=== PATIENT | male | born 1955 | race Caucasian/White ===

== ENCOUNTER 2022-11-09 13:35 | Observation (INO) ==
[2022-11-09] MEDS ORDERED: SODIUM CHLORIDE 0.9% 500 ML IV STA (13:51)
[2022-11-09] MEDS ORDERED: dilTIAZem HCl 5 MG/ML 5 ML VIAL IV ONE (13:59)
[2022-11-09] MEDS ORDERED: dilTIAZem HCl 5 MG/ML 5 ML VIAL IV STA (14:02)
--- NOTE | 2022-11-09 14:02 | Emergency Department Note ---
Impression & Plan Atrial fibrillation with rapid ventricular response ADMIT ED Provider Note HPI: The patient is a 67-year-old gentleman who presents emergency department with chief complaint of palpitations. Patient states he is also had some intermittent chest pressure on the left side that radiates somewhat to his left shoulder blade. On arrival here to the ED the patient was noted to be tachycardic in the 140s, consistent on the monitor with atrial fibrillation with RVR. Patient is otherwise hemodynamically stable and saturating well on room air. ROS: - Per HPI *Outpatient medications and allergy history reviewed. *Pertinent external medical records reviewed. PE: General: Alert HEENT: Normocephalic, trachea midline Eyes: Extraocular eye movement is intact, no scleral erythema Pulmonary: Clear to auscultation bilaterally, no wheezing Cardio: Tachycardic rate with irregular rhythm GI: Abdomen is soft to palpation : No suprapubic tenderness MSK: No evidence of trauma or malformation of the extremities, no edema Skin: No evidence of rash Neuro: Alert, no focal deficits Psychiatric: Cooperative court monitor: (As interpreted by myself): - An order was placed for continuous cardiac monitoring - Patient was noted to be in atrial fibrillation with a rate of 150 EKG: (As interpreted by myself): Rate: 145 Rhythm: Atrial flutter with variable block Intervals: IL indeterminate, QRS within normal limits, QTc [address] changes: No ST elevation Time: 1346 EKG #2 Rate: 114 Rhythm: Atrial flutter Intervals: Within normal limits ST changes: No ST elevation Time: 1440 EKG #3 Rate: 56 Rhythm: Sinus rhythm Intervals: Within normal limits ST changes: No ST elevation Time: 1600 Interventions provided in ED: -IV diltiazem, IV metoprolol, IV fluid bolus Differential Diagnosis: Atrial fibrillation with RVR, atrial flutter, SVT, sinus tachycardia, acute coronary syndrome, pulmonary embolism, aortic dissection, amongst other potential pathologies. Medical Decision Making: Patient presented to the emergency department with chief complaint of palpitations and some left-sided chest discomfort. Patient states that he has had the symptoms intermittently for about the past 2 days. On arrival here to the ED the patient is in no acute distress, he is hemodynamically stable, noted to be in atrial fibrillation with RVR on the monitor in the 150s. EKG does confirm atrial fibrillation versus atrial flutter with elevated rate. Given the patient's hemodynamic stability he was given a bolus of IV diltiazem. Patient remained on court monitor, he was given IV fluids, heart rate did improve into the low 100s following IV diltiazem. Lab work obtained shows nonspecific white blood cell count at 11.3, hemoglobin is stable at 16, platelet count within normal limits, D-dimer was obtained and is negative, low suspicion for PE. Low suspicion for aortic dissection. Patient states his pain is intermittent and atypical. Low suspicion for ACS. Troponin is also noted to be negative. Chest x-ray does not show any evidence of acute disease, following IV diltiazem and subsequently IV metoprolol, repeat EKG at 1600 shows evidence of sinus rhythm. Given that this event was new onset atrial fibrillation for the patient, I did discuss the case with the on-call midlevel provider for [facility] and the patient will be admitted to the hospitalist service for further management and cardiology consultation. Patient is in agreement the above plan the patient was placed for admission in improved condition. [facility] Disposition discussion held by myself with: Patient * CRITICAL CARE TIME: ( 42 ) minutes -Stabilization of tachyarrhythmia/atrial fibrillation with RVR requiring IV rate control medications for improvement, time spent at the bedside, discussion with other healthcare providers and arrangement of admission Diagnosis: 1. Atrial fibrillation with RVR, new onset 2. Nonspecific chest discomfort, acute Disposition: Admission López Martinez DO Emergency Medicine Past Med/Surg History Medical History Diverticulosis of colon GERD (gastroesophageal reflux disease) HLD (hyperlipidemia) Tobacco use Surgical History Hx of colonoscopy Hx of hemorrhoidectomy Family History Father Cancer Sister Heart disease Social History Smoking Status: Current every day smoker Tobacco Type: Cigarettes packs per day: 1.5; Second Hand Exposure: No; Do You Dip or Chew Tobacco: No; Tobacco Cessation Education Requested by Patient: No Hx Alcohol Use: Yes Alcohol type: beer Hx Substance Use: No Preferred Language: Maltese Communication Ability: Effective Elevator Dispatcher Required: No Beliefs That Will Affect Care: None Current Living Situation: Alone Other Information That Helps Us Care for You: No Feels Safe at Home: Yes Safety Concerns: Feels Safe At This Time Assistive Devices: None Allergies Allergies Allergy/AdvReac Type Severity Reaction Status Date / Time No Known Allergies Allergy Mild Verified 11/09/22 14:49 Home Meds Home Medications Medication Instructions Recorded Confirmed metoprolol succinate 25 mg 25 mg PO QAM 11/09/22 11/09/22 tablet,extended release 24 hr multivitamin 1 tab PO QAM 11/09/22 11/09/22 omega-3 fatty acids 1,000 mg 2,000 mg PO QAM 11/09/22 11/09/22 capsule Results & Data (ED) Vital Signs Vital Signs - 24 hr 11/09/22 13:38 11/09/22 13:53 11/09/22 13:51 Temperature 36.8 C Temperature Source Temporal Artery Scan Pulse Rate 79 133 H Pulse Rate from SpO2 Sensor Respiratory Rate 18 Respiratory Effort / Characteristics Non-Labored Respiratory Depth Normal Blood Pressure 103/72 Blood Pressure Mean 82 Pulse Oximetry 99 96 Oxygen Delivery Method Room Air Room Air Sepsis Recent Fever Within 48 Hours No Sepsis New/Unexplained Change in Mental Status No Sepsis Action Taken by Nursing No Action Required 11/09/22 14:00 11/09/22 14:04 11/09/22 14:10 Temperature Temperature Source Pulse Rate 149 H 136 H 108 H Pulse Rate from SpO2 Sensor 121 H 139 H 104 H Respiratory Rate 19 26 H 18 Respiratory Effort / Characteristics Respiratory Depth Blood Pressure 129/87 99/73 L 99/77 L Blood Pressure Mean 101 81 84 Pulse Oximetry 99 97 97 Oxygen Delivery Method Sepsis Recent Fever Within 48 Hours Sepsis New/Unexplained Change in Mental Status Sepsis Action Taken by Nursing 11/09/22 14:53 11/09/22 14:22 11/09/22 14:30 Temperature Temperature Source Pulse Rate 113 H 118 H 107 H Pulse Rate from SpO2 Sensor 109 H 81 Respiratory Rate 19 13 Respiratory Effort / Characteristics Respiratory Depth Blood Pressure 110/73 98/81 L 108/86 Blood Pressure Mean 86 93 Pulse Oximetry 97 96 Oxygen Delivery Method Sepsis Recent Fever Within 48 Hours Sepsis New/Unexplained Change in Mental Status Sepsis Action Taken by Nursing 11/09/22 14:40 11/09/22 14:50 11/09/22 15:00 Temperature Temperature Source Pulse Rate 108 H 117 H Pulse Rate from SpO2 Sensor 119 H 132 H Respiratory Rate 14 17 Respiratory Effort / Characteristics Respiratory Depth Blood Pressure 113/79 110/73 117/76 Blood Pressure Mean 90 85 89 Pulse Oximetry 96 95 Oxygen Delivery Method Sepsis Recent Fever Within 48 Hours Sepsis New/Unexplained Change in Mental Status Sepsis Action Taken by Nursing 11/09/22 15:00 11/09/22 15:10 11/09/22 15:10 Temperature Temperature Source Pulse Rate 84 108 H Pulse Rate from SpO2 Sensor 89 88 Respiratory Rate 17 15 Respiratory Effort / Characteristics Respiratory Depth Blood Pressure 140/63 Blood Pressure Mean 88 Pulse Oximetry 97 95 Oxygen Delivery Method Sepsis Recent Fever Within 48 Hours Sepsis New/Unexplained Change in Mental Status Sepsis Action Taken by Nursing 11/09/22 15:20 11/09/22 15:30 11/09/22 15:31 Temperature Temperature Source Pulse Rate 92 H 110 H 88 Pulse Rate from SpO2 Sensor 93 H 95 H 84 Respiratory Rate 20 20 12 Respiratory Effort / Characteristics Respiratory Depth Blood Pressure Blood Pressure Mean Pulse Oximetry 97 95 96 Oxygen Delivery Method Sepsis Recent Fever Within 48 Hours Sepsis New/Unexplained Change in Mental Status Sepsis Action Taken by Nursing 11/09/22 15:31 11/09/22 15:40 11/09/22 15:40 Temperature Temperature Source Pulse Rate 112 H Pulse Rate from SpO2 Sensor 95 H Respiratory Rate 16 Respiratory Effort / Characteristics Respiratory Depth Blood Pressure 90/72 L 110/71 Blood Pressure Mean 78 84 Pulse Oximetry 96 Oxygen Delivery Method Sepsis Recent Fever Within 48 Hours Sepsis New/Unexplained Change in Mental Status Sepsis Action Taken by Nursing 11/09/22 15:50 11/09/22 15:50 11/09/22 16:00 Temperature Temperature Source Pulse Rate 56 L Pulse Rate from SpO2 Sensor 57 L Respiratory Rate 16 Respiratory Effort / Characteristics Respiratory Depth Blood Pressure 99/72 L 103/70 Blood Pressure Mean 81 81 Pulse Oximetry 96 Oxygen Delivery Method Sepsis Recent Fever Within 48 Hours Sepsis New/Unexplained Change in Mental Status Sepsis Action Taken by Nursing 11/09/22 16:00 11/09/22 16:10 11/09/22 16:10 Temperature Temperature Source Pulse Rate 57 L 58 L Pulse Rate from SpO2 Sensor 57 L 57 L Respiratory Rate 18 19 Respiratory Effort / Characteristics Respiratory Depth Blood Pressure 94/66 L Blood Pressure Mean 75 Pulse Oximetry 95 95 Oxygen Delivery Method Sepsis Recent Fever Within 48 Hours Sepsis New/Unexplained Change in Mental Status Sepsis Action Taken by Nursing Laboratory Data 11/09/22 13:56 05/05/23 13:56 Lab Results 11/09/22 11/09/22 11/09/22 Range/Units 13:56 13:56 13:56 WBC 11.37 H (4.8-10.8) K/ul RBC 4.83 (4.70-6.10) M/uL Hgb 16.0 (14.0-18.0) g/dl Hct 46.5 (42.0-52.0) % MCV 96.3 (80.0-100.0) fL MCH 33.1 (25.0-34.0) pg MCHC 34.4 (32.0-36.0) g/dL RDW Std Deviation 48.5 H (36.4-46.3) fL RDW Coeff of Matthew 13.7 (11.5-14.5) % Plt Count 268 (130-400) K/uL MPV 10.6 (9.4-12.4) fL Immature Gran % (Auto) 0.5 % Neut % (Auto) 42.1 % Lymph % (Auto) 41.6 % Eagle % (Auto) 12.8 % Eos % (Auto) 2.1 % Baso % (Auto) 0.9 % Neut # (Auto) 4.78 (1.40-6.50) K/uL Lymph # (Auto) 4.73 H (1.2-3.4) K/uL Eagle # (Auto) 1.46 H (0.11-0.59) K/uL Eos # (Auto) 0.24 (0-0.50) K/uL Baso # (Auto) 0.10 (0-0.2) K/uL Immature Gran # (Auto) 0.06 (0.01-0.20) K/uL PT Cancelled INR Cancelled D-Dimer Cancelled Sodium 138 (136-145) mmol/L Potassium 4.3 (3.5-5.1) mmol/L Chloride 110 H (98-107) mmol/L Carbon Dioxide 24 (21-32) mmol/L Anion Gap 4 (3-11) BUN 17 (6-23) mg/dl Creatinine 0.90 (0.6-1.4) mg/dl Est Cr Clr Drug Dosing 76.5 ml/min Est GFR ( Amer) 103.5 ml/min Est GFR (Non-Af Amer) 89.3 ml/min BUN/Creatinine Ratio 18.9 (10-20) Glucose 90 (70-99(Fasting)) mg/dl Calcium 9.4 (8.6-10.3) mg/dl Magnesium (1.7-2.4) mg/dl Total Bilirubin 1.1 H (0.2-1.0) mg/dl AST 20 (13-39) U/L ALT 17 (7-52) U/L Alkaline Phosphatase 98 (34-104) U/L Troponin I High Sens 10.3 (0-20) pg/ml Total Protein 7.4 (6.0-8.3) gm/dl Albumin 4.0 (3.4-5.0) gm/dl Globulin 3.4 (2.5-4.0) gm/dl Albumin/Globulin Ratio 1.2 (0.9-2) Lipase 37 (11-82) U/L TSH (0.300-4.500) uIu/ml Free T4 (0.61-1.60) ng/dl SARS-CoV-2, RNA, NAAT (NEGATIVE) 11/09/22 11/09/22 11/09/22 Range/Units 13:56 14:00 15:21 WBC (4.8-10.8) K/ul RBC (4.70-6.10) M/uL Hgb (14.0-18.0) g/dl Hct (42.0-52.0) % MCV (80.0-100.0) fL MCH (25.0-34.0) pg MCHC (32.0-36.0) g/dL RDW Std Deviation (36.4-46.3) fL RDW Coeff of Matthew (11.5-14.5) % Plt Count (130-400) K/uL MPV (9.4-12.4) fL Immature Gran % (Auto) % Neut % (Auto) % Lymph % (Auto) % Eagle % (Auto) % Eos % (Auto) % Baso % (Auto) % Neut # (Auto) (1.40-6.50) K/uL Lymph # (Auto) (1.2-3.4) K/uL Eagle # (Auto) (0.11-0.59) K/uL Eos # (Auto) (0-0.50) K/uL Baso # (Auto) (0-0.2) K/uL Immature Gran # (Auto) (0.01-0.20) K/uL PT 11.6 INR 1.1 D-Dimer 420 Sodium (136-145) mmol/L Potassium (3.5-5.1) mmol/L Chloride (98-107) mmol/L Carbon Dioxide (21-32) mmol/L Anion Gap (3-11) BUN (6-23) mg/dl Creatinine (0.6-1.4) mg/dl Est Cr Clr Drug Dosing ml/min Est GFR ( Amer) ml/min Est GFR (Non-Af Amer) ml/min BUN/Creatinine Ratio (10-20) Glucose (70-99(Fasting)) mg/dl Calcium (8.6-10.3) mg/dl Magnesium (1.7-2.4) mg/dl Total Bilirubin (0.2-1.0) mg/dl AST (13-39) U/L ALT (7-52) U/L Alkaline Phosphatase (34-104) U/L Troponin I High Sens (0-20) pg/ml Total Protein (6.0-8.3) gm/dl Albumin (3.4-5.0) gm/dl Globulin (2.5-4.0) gm/dl Albumin/Globulin Ratio (0.9-2) Lipase (11-82) U/L TSH 5.311 H (0.300-4.500) uIu/ml Free T4 0.81 (0.61-1.60) ng/dl SARS-CoV-2, RNA, NAAT NEGATIVE (NEGATIVE) 11/09/22 Range/Units 15:22 WBC (4.8-10.8) K/ul RBC (4.70-6.10) M/uL Hgb (14.0-18.0) g/dl Hct (42.0-52.0) % MCV (80.0-100.0) fL MCH (25.0-34.0) pg MCHC (32.0-36.0) g/dL RDW Std Deviation (36.4-46.3) fL RDW Coeff of Matthew (11.5-14.5) % Plt Count (130-400) K/uL MPV (9.4-12.4) fL Immature Gran % (Auto) % Neut % (Auto) % Lymph % (Auto) % Eagle % (Auto) % Eos % (Auto) % Baso % (Auto) % Neut # (Auto) (1.40-6.50) K/uL Lymph # (Auto) (1.2-3.4) K/uL Eagle # (Auto) (0.11-0.59) K/uL Eos # (Auto) (0-0.50) K/uL Baso # (Auto) (0-0.2) K/uL Immature Gran # (Auto) (0.01-0.20) K/uL PT INR D-Dimer Sodium (136-145) mmol/L Potassium (3.5-5.1) mmol/L Chloride (98-107) mmol/L Carbon Dioxide (21-32) mmol/L Anion Gap (3-11) BUN (6-23) mg/dl Creatinine (0.6-1.4) mg/dl Est Cr Clr Drug Dosing ml/min Est GFR ( Amer) ml/min Est GFR (Non-Af Amer) ml/min BUN/Creatinine Ratio (10-20) Glucose (70-99(Fasting)) mg/dl Calcium (8.6-10.3) mg/dl Magnesium 1.7 (1.7-2.4) mg/dl Total Bilirubin (0.2-1.0) mg/dl AST (13-39) U/L ALT (7-52) U/L Alkaline Phosphatase (34-104) U/L Troponin I High Sens (0-20) pg/ml Total Protein (6.0-8.3) gm/dl Albumin (3.4-5.0) gm/dl Globulin (2.5-4.0) gm/dl Albumin/Globulin Ratio (0.9-2) Lipase (11-82) U/L TSH (0.300-4.500) uIu/ml Free T4 (0.61-1.60) ng/dl SARS-CoV-2, RNA, NAAT (NEGATIVE) Administered Medications Discontinued Medications Diltiazem HCl (Diltiazem Hcl 5 Mg/Ml 5 Ml Vial) Confirm Administered Dose 25 mg IV .STK-MED ONE Stop: 11/09/22 14:00 Last Admin: 11/09/22 14:00 Dose: 10 mg Documented By: NKECHI Co-signed By: ANGELINA Diltiazem HCl (Diltiazem Hcl 5 Mg/Ml 5 Ml Vial) 10 mg IV NOW STA Stop: 11/09/22 14:03 Last Admin: 11/09/22 14:03 Dose: Not Given Documented By: ANGELINA Sodium Chloride (Nss) 500 mls @ 999 mls/hr IV .Q31M STA Stop: 11/09/22 14:21 Last Infusion: 11/09/22 16:06 Dose: 0 mls/hr Documented By: Admin: 11/09/22 14:01 Dose: 999 mls/hr Documented By: NKECHI Metoprolol Tartrate (Metoprolol Tartrate 1 Mg/Ml Vial) 5 mg IV NOW STA Stop: 11/09/22 14:43 Last Admin: 11/09/22 14:53 Dose: 5 mg Documented By: ANGELINA Imaging Data Radiologist's Impression: Chest X-Ray 11/09/22 13:51 XR chest 1V portable HISTORY: Chest pain, nonspecific COMPARISON: None. FINDINGS: The cardiac silhouette is mildly enlarged. No focal lung consolidations to suggest a pneumonia. No evidence for pulmonary edema. No pleural effusions. No pneumothorax. IMPRESSION: Mild cardiomegaly. Otherwise, no acute process within the chest. ACT 112: Negative or not required by law. Electronically signed by: Jason Perez M.D. 11/09/2022 2:22 PM Discharge Plan Visit Data Chief Complaint: Chest Pain Stated Complaint: CHEST PAINS, LEFT SHOULDER PAIN ED Provider: López Martinez Discharge Problem: Atrial fibrillation with rapid ventricular response Patient Disposition: Admitted As Inpatient Discharge Instructions Interventions: ED Discharge Assessment Last Done: 11/09/22 18:25
[2022-11-09 14:22] LABS: Basophils % (auto) 0.9 %; Eosinophils # (auto) 0.24 K/uL (0-0.50); Eosinophils % (auto) 2.1 %; Hematocrit (blood only) 46.5 % (42.0-52.0); Immature Granulocytes # (auto) 0.06 K/uL (0.01-0.20); Immature Granulocytes % (auto) 0.5 %; Lymphocytes # (auto) 4.73 K/uL (1.2-3.4); Lymphocytes % (auto) 41.6 %; Mean Corpuscular Hemoglobin 33.1 pg (25.0-34.0); Mean Corpuscular Hgb Conc 34.4 g/dL (32.0-36.0); Mean Corpuscular Volume 96.3 fL (80.0-100.0); Mean Platelet Volume 10.6 fL (9.4-12.4); Monocytes # (auto) 1.46 K/uL (0.11-0.59); Monocytes % (auto) 12.8 %; Neutrophils # (auto) 4.78 K/uL (1.40-6.50); Neutrophils % (auto) 42.1 %; Platelet Count 268 K/uL (130-400); RDW Coefficient of Variation 13.7 % (11.5-14.5); RDW Standard Deviation 48.5 fL (36.4-46.3); Red Blood Count 4.83 M/uL (4.70-6.10); White Blood Count 11.37 K/ul (4.8-10.8)
--- NOTE | 2022-11-09 14:24 | XRay Report ---
XR chest 1V portable HISTORY: Chest pain, nonspecific COMPARISON: None. FINDINGS: The cardiac silhouette is mildly enlarged. No focal lung consolidations to suggest a pneumo berkley. No evidence for pulmonary edema. No pleural effusions. No pneumothorax. IMPRESSION: Mild cardiomegaly. Otherwise, no acute process within the chest. ACT 112: Negative or not required by law. Electronically signed by: Jason Perez M.D. 11/09/2022 2:22 PM
[2022-11-09 14:40] LABS: Albumin Globulin Ratio 1.2 (0.9-2); BUN Creatinine Ratio 18.9 (10-20); Bilirubin,Total 1.1 mg/dl (0.2-1.0); Calcium 9.4 mg/dl (8.6-10.3); Creatinine Clr Calc Pharmacy 76.5 ml/min; Est GFR (African American) 103.5 ml/min; Est GFR (Non-African American) 89.3 ml/min; Globulin 3.4 gm/dl (2.5-4.0); Potassium 4.3 mmol/L (3.5-5.1); Total Protein 7.4 gm/dl (6.0-8.3)
[2022-11-09] MEDS ORDERED: METOPROLOL TARTRATE 1 MG/ML VIAL IV STA (14:42)
[2022-11-09 14:46] LABS: Troponin I High Sensitivity 10.3 pg/ml (0-20)
[2022-11-09 16:08] LABS: D Dimer 420 ug/L FEU (0-500); INR 1.1 (0.9-1.1); Prothrombin Time 11.6 Seconds (9.0-12.0)
--- NOTE | 2022-11-09 17:09 | History & Physical Report ---
Date of Service November 09, 2022 Assessment & Plan (1) Atrial flutter with rapid ventricular response: Plan: Admit to telemetry Patient presenting from home with reports of fatigue and left-sided chest discomfort x 2 weeks. In the ED, patient found to be in atrial flutter with RVR with variable AV block. Patient received IV diltiazem 10 mg and IV metoprolol 5 mg and has since converted to NSR Patient evaluated by cardiology in 2020 for complaints of palpitations. Was ordered metoprolol succinate which he states he took for a few months and then stopped since his symptoms improved. Patient reports he self resumed metoprolol a couple of days ago. Was to have an echo as an outpatient however this was not completed due to lack of insurance at the time. Will resume metoprolol tartrate 25 mg BID [id number] score 1 (age), will start Eliquis 5mg BID Echo Electrolytes and TSH acceptable, no signs of infection Noted patient does have significant daily caffeine intake Cardiology consult (2) HLD (hyperlipidemia): Plan: Previously on atorvastatin, patient self stopped Lipid panel in a.m. (3) Elevated TSH: Plan: TSH 5.3 with normal free T4 Outpatient follow-up DVT PROPHYLAXIS Starting Eliquis as above Patient seen in collaboration with Dr. West. I spent a total of 75 minutes coordinating, documenting, and providing care for this patient excluding time spent in the performance of separately billed services. This included personally reviewing all current laboratories and imaging studies, medication reconciliation, outpatient chart review, and discussion with specialists. History of Present Illness Chief Complaint: Fatigue, chest pain Primary Care Provider: Bing Layne PA-C 67-year-old male with PMH dyslipidemia, palpitations, and other problems listed below who presents to the ED for evaluation of fatigue and chest pain. History obtained from patient and review of outpatient PCP and cardiology records. Patient evaluated by cardiology in 2020 for complaints of palpitations. Patient was started on metoprolol and was recommended to get an echocardiogram. Patient reports he never completed the echocardiogram due to not having insurance at the time. Patient states that he stopped the metoprolol after a few months since he was feeling better. Patient reports that about 2 weeks ago, he developed feelings of fatigue and left-sided chest discomfort. Patient describes the chest discomfort as a squeezing sensation. No specific causative or relieving factors. Noted the patient is somewhat a poor historian. He reports intermittent feelings of indigestion which was relieved with Pepcid. This is not a new symptom for him. He denies lightheadedness, dizziness, diaphoresis, syncopal events. Denies abdominal pain, nausea, vomiting, diarrhea. No other recent illnesses, fevers, chills. Denies urinary symptoms. In the ED, EKG shows atrial flutter with RVR and variable block. Patient was given diltiazem 10 mg IV and metoprolol 5 mg IV and has converted to NSR. Labs are unremarkable. Allergies Allergy/AdvReac Type Severity Reaction Status Date / Time No Known Allergies Allergy Mild Verified 11/09/22 14:49 Home Medications Medication Instructions Recorded Confirmed Type metoprolol succinate 25 mg 25 mg PO QAM 11/09/22 11/09/22 History tablet,extended release 24 hr multivitamin 1 tab PO QAM 11/09/22 11/09/22 History omega-3 fatty acids 1,000 mg 2,000 mg PO QAM 11/09/22 11/09/22 History capsule Past Med/Surg History Medical History Diverticulosis of colon GERD (gastroesophageal reflux disease) HLD (hyperlipidemia) Tobacco use Surgical History Hx of colonoscopy Hx of hemorrhoidectomy Family History Father Cancer Sister Heart disease Social History Smoking Status: Current every day smoker Tobacco Type: Cigarettes packs per day: 1.5; Second Hand Exposure: No; Do You Dip or Chew Tobacco: No; Tobacco Cessation Education Requested by Patient: No Hx Alcohol Use: Yes Alcohol type: beer Hx Substance Use: No Preferred Language: Burmese Communication Ability: Effective Gambling Broker Required: No Beliefs That Will Affect Care: None Current Living Situation: Alone Other Information That Helps Us Care for You: No Feels Safe at Home: Yes Safety Concerns: Feels Safe At This Time Assistive Devices: None Review of Systems Review of Systems: ROS per HPI, all other systems reviewed and negative Physical Exam Constitutional: WD/WN, vitals as above Eyes: PERRL, conjunctivae normal, anicteric sclerae ENMT: external ear and nose normal, oropharynx normal Respiratory: normal respiratory effort, lungs clear to auscultation Cardiovascular: Rate/Rhythm: regular rate and regular rhythm Vessels: normal peripheral pulses Extremities: no edema Gastrointestinal (Abdomen): normal bowel sounds, soft, nontender, no hepatosplenomegaly Musculoskeletal: no cyanosis or clubbing, extremities motor strength 5/5 Skin: no rashes, warm and dry Neurologic: PERRL, EOMI, accommodation nl, no face palsy, no dysarthria Psychiatric: A+Ox3, euthymic affect Results & Data Results & Data Vital Signs (Past 12 Hours) Vital Signs Temp Pulse Resp BP Pulse Ox O2 Del Method 11/09/22 16:40 63 16 11/09/22 16:40 116/65 11/09/22 16:31 107/72 11/09/22 16:31 56 L 15 97 11/09/22 16:30 59 L 20 96 11/09/22 16:20 56 L 17 97 11/09/22 16:20 92/61 L 11/09/22 16:10 58 L 19 95 11/09/22 16:10 94/66 L 11/09/22 16:00 57 L 18 95 11/09/22 16:00 103/70 11/09/22 15:50 56 L 16 96 11/09/22 15:50 99/72 L 11/09/22 15:40 112 H 16 96 11/09/22 15:40 110/71 11/09/22 15:31 90/72 L 11/09/22 15:31 88 12 96 11/09/22 15:30 110 H 20 95 11/09/22 15:20 92 H 20 97 11/09/22 15:10 108 H 15 95 11/09/22 15:10 140/63 11/09/22 15:00 84 17 97 11/09/22 15:00 117/76 11/09/22 14:50 117 H 17 110/73 95 11/09/22 14:40 108 H 14 113/79 96 11/09/22 14:30 107 H 13 108/86 96 11/09/22 14:22 118 H 19 98/81 L 97 11/09/22 14:53 113 H 110/73 11/09/22 14:10 108 H 18 99/77 L 97 11/09/22 14:04 136 H 26 H 99/73 L 97 11/09/22 14:00 149 H 19 129/87 99 11/09/22 13:51 96 Room Air 11/09/22 13:53 133 H 11/09/22 13:38 36.8 C 79 18 103/72 99 Room Air Laboratory Results Short CBC 11/09/22 Range/Units 13:56 WBC 11.37 H (4.8-10.8) K/ul Hgb 16.0 (14.0-18.0) g/dl Hct 46.5 (42.0-52.0) % Plt Count 268 (130-400) K/uL BMP 11/09/22 13:56 Sodium 138 Potassium 4.3 Chloride 110 H Carbon Dioxide 24 BUN 17 Creatinine 0.90 Glucose 90 Calcium 9.4 Liver Function 11/09/22 Range/Units 13:56 Total Bilirubin 1.1 H (0.2-1.0) mg/dl AST 20 (13-39) U/L ALT 17 (7-52) U/L Alkaline Phosphatase 98 (34-104) U/L Albumin 4.0 (3.4-5.0) gm/dl Diagnostic Findings Chest X-Ray 11/09/22 13:51 XR chest 1V portable HISTORY: Chest pain, nonspecific COMPARISON: None. FINDINGS: The cardiac silhouette is mildly enlarged. No focal lung consolidations to suggest a pneumonia. No evidence for pulmonary edema. No pleural effusions. No pneumothorax. IMPRESSION: Mild cardiomegaly. Otherwise, no acute process within the chest. ACT 112: Negative or not required by law. Electronically signed by: Jason Perez M.D. 11/09/2022 2:22 PM Supervising Physician Co-Signing Physician Notes I have seen and examined the patient and have discussed the case with the provider above. I agree with the assessment and plan as stated. 67 yo M presented with rapid afib. He was known to have had palpitations in the past a nd took Metoprolol for a couple of months. Denies any stroke symptoms at this time. Reports his chest discomfort over the past 24 hours has now improved and almost resolved. He has a regular rate and rhythm on cardiac auscultation. S1 and S2 are heard. There are no murmurs, gallops or rubs. No peripheral edema. Lungs are clear to auscultation. There is no gross focal neurologic deficit. ACS ruled out with no ST changes on EKG and a normal HS trop x 2. Echo ordered to evaluate valves/structure. Labwork reviewed. CXR reveals no acute process. New onset atrial fibrillation with spontaneous conversaion to sinus rhythm after AV nuzhat esperanza administration in the ER. His symptoms are resolving. Agree with continuing metoprolol and starting apixaban. Consult cardiology to see p rior to discharge. Cont monitoring ovenright on telemetry and followup echo results in am. Educated to cut down on caffeine intake and smoking cessation advised. DO Brett
[2022-11-09 17:11] LABS: Thyroid Stimulating Hormone 5.311 uIu/ml (0.300-4.500)
[2022-11-09 17:46] LABS: T4 Free Thyroxine 0.81 ng/dl (0.61-1.60)
[2022-11-09] MEDS ORDERED: ACETAMINOPHEN 325 MG TAB PO PRN (18:26)
[2022-11-09] MEDS: APIXABAN 5 MG TABLET PO SCH (20:11)
[2022-11-09] MEDS: METOPROLOL TARTRATE 25 MG TAB PO SCH (20:11)
--- NOTE | 2022-11-09 22:38 | Electrocardiogram Report ---
Test Reason : Blood Pressure : / mmHG Vent. Rate : 145 BPM Atrial Rate : 312 BPM P-R Int : 000 ms QRS Dur : 084 ms QT Int : 326 ms P-R-T Axes : 000 -71 089 degrees QTc Int : 506 ms Atrial flutter with variable A-V block Left anterior fascicular block Abnormal ECG No previous ECGs available Confirmed by Chester Grossman ([id number]) on 11/09/2022 10:38:18 PM Referred By: REFERRED SELF Confirmed By:Chester Grossman
--- NOTE | 2022-11-09 22:41 | Electrocardiogram Report ---
Test Reason : Blood Pressure : / mmHG Vent. Rate : 114 BPM Atrial Rate : 300 BPM P-R Int : 000 ms QRS Dur : 084 ms QT Int : 346 ms P-R-T Axes : 000 -65 080 degrees QTc Int : 476 ms Atrial flutter with variable A-V block Left anterior fascicular block Abnormal ECG When compared with ECG of 09-NOV-2022 13:46, (unconfirmed) No significant change was found Confirmed by Chester Grossman ([id number]) on 11/09/2022 10:41:29 PM Referred By: REFERRED SELF Confirmed By:Chester Grossman
[2022-11-10 02:08] LABS: Hematocrit (blood only) 40.4 % (42.0-52.0); Hemoglobin 13.6 g/dl (14.0-18.0); Mean Corpuscular Hgb Conc 33.7 g/dL (32.0-36.0); Mean Corpuscular Volume 98.1 fL (80.0-100.0); Mean Platelet Volume 10.8 fL (9.4-12.4); Platelet Count 229 K/uL (130-400); RDW Coefficient of Variation 13.6 % (11.5-14.5); RDW Standard Deviation 49.3 fL (36.4-46.3); Red Blood Count 4.12 M/uL (4.70-6.10); White Blood Count 9.98 K/ul (4.8-10.8)
[2022-11-10 02:25] LABS: BUN Creatinine Ratio 19.6 (10-20); Calcium 8.5 mg/dl (8.6-10.3); Chol HDL Ratio 5.5 (0-5); Creatinine Clr Calc Pharmacy 74.8 ml/min; Est GFR (African American) 100.8 ml/min; Potassium 4.1 mmol/L (3.5-5.1)
[2022-11-10 02:31] LABS: Troponin I High Sensitivity 6.5 pg/ml (0-20)
[2022-11-10] MEDS: METOPROLOL TARTRATE 25 MG TAB PO SCH (09:34)
--- NOTE | 2022-11-10 09:38 | Cardiology Consultation ---
Date of Consultation November 10, 2022 Assessment & Plan (1) Atrial flutter with rapid ventricular response: (2) HLD (hyperlipidemia): Plan Patient is a 67-year-old male with prior history of palpitations but now presenting with first observed event of atrial flutter with variable AV block, symptomatic rapid ventricular response. He spontaneously converted to sinus rhythm with IV diltiazem and IV metoprolol. EKG postconversion sinus rhythm/sinus bradycardia with borderline left intrafascicular block no ischemic changes no troponin rise echocardiogram normal LV function and left atrial size Recommendations: Patient with [id number] 2 score with mild elevation at 1 only. Would continue Eliquis 5 mg twice per day for at least 1 month Patient to take metoprolol succinate 25 mg p.o. daily, prescription order updated metoprolol tartrate held this morning and will be Continue atorvastatin Urged tobacco cessation Cardiology follow-up 4 to 6 weeks time History of Present Illness Reason for Consultation: Paroxysmal atrial flutter Requesting Physician: Dr. West Attending Physician: Shantelle West, History of Present Illness Patient is a 67-year-old male whose past history is notable for intermittent palpitations previously treated with beta-esperanza, hyperlipidemia, chronic tobacco use. Patient presented for hospitalization yesterday having developed symptoms of tachypalpitations for 2 to 3 days in duration. Had resumed prior metoprolol succinate but still had persistent elevation in heart rate and lower blood pressures. He sought ER evaluation and on presentation was in atrial flutter with rapid ventricular response, variable block. Patient was treated with IV diltiazem and IV metoprolol with subsequent version to sinus rhythm. Currently feels well without complaint Denies history of chest pains, angina, worsening shortness of breath. No syncope or near syncope. No history of hypertension, diabetes mellitus, TIA or stroke. No recent fevers chills or unexplained infections Occasional hemorrhoidal issues but no bleeding. Appetite and weight are stable no sleep disruption Does smoke 1 to 1-1/2 pack cigarettes per day Allergies Allergy/AdvReac Type Severity Reaction Status Date / Time No Known Allergies Allergy Mild Verified 11/09/22 14:49 Home Medications Medication Instructions Recorded Confirmed Type metoprolol succinate 25 mg 25 mg PO QAM 11/09/22 11/09/22 History tablet,extended release 24 hr multivitamin 1 tab PO QAM 11/09/22 11/09/22 History omega-3 fatty acids 1,000 mg 2,000 mg PO QAM 11/09/22 11/09/22 History capsule Patient History Medical History Diverticulosis of colon GERD (gastroesophageal reflux disease) HLD (hyperlipidemia) Tobacco use Surgical History Hx of colonoscopy Hx of hemorrhoidectomy Family History Father Cancer Sister Heart disease Social History Smoking Status: Current every day smoker Tobacco Type: Cigarettes packs per day: 1.5; Second Hand Exposure: No; Do You Dip or Chew Tobacco: No; Tobacco Cessation Education Requested by Patient: No Hx Alcohol Use: Yes Alcohol type: beer Hx Substance Use: No Preferred Language: Brazilian Communication Ability: Effective [employer] Manager Required: No Beliefs That Will Affect Care: None Current Living Situation: Alone Other Information That Helps Us Care for You: No Feels Safe at Home: Yes Safety Concerns: Feels Safe At This Time Assistive Devices: None Review of Systems Review of Systems: All systems reviewed & are unremarkable except as noted in HPI & below Physical Exam Constitutional: WD/WN, vitals as above Eyes: PERRL, conjunctivae normal, anicteric sclerae ENMT: external ear and nose normal, oropharynx normal Neck: trachea midline, no thyromegaly Respiratory: Auscultation: lungs clear to auscultation bilaterally and + diminished lung sounds Cardiovascular: Rate/Rhythm: regular rate, regular rhythm and + bradycardic Heart Sounds: normal S1 and normal S2; no murmur Vessels: no JVD Extremities: no edema Gastrointestinal (Abdomen): normal bowel sounds, soft, nontender, no hepatosplenomegaly Musculoskeletal: no cyanosis or clubbing, extremities motor strength 5/5 Neurologic: PERRL, EOMI, accommodation nl, no face palsy, no dysarthria Results & Data Vital Signs (Past 12 Hours) Vital Signs Temp Pulse Pulse Resp BP Pulse Ox O2 Del Method 11/10/22 09:35 60 11/10/22 08:28 54 L 11/10/22 07:50 36.5 C 54 L 16 107/73 97 Room Air 11/10/22 03:00 36.5 C 61 19 101/63 94 Room Air 11/09/22 22:01 60 11/10/22 00:17 58 L 11/09/22 23:00 36.7 C 19 94/60 L 96 Room Air 11/09/22 21:52 Room Air Laboratory Results Laboratory Results - last 24 hr 11/09/22 11/09/22 11/09/22 13:56 13:56 13:56 WBC 11.37 H RBC 4.83 Hgb 16.0 Hct 46.5 MCV 96.3 MCH 33.1 MCHC 34.4 RDW Std Deviation 48.5 H RDW Coeff of Matthew 13.7 Plt Count 268 MPV 10.6 Immature Gran % (Auto) 0.5 Neut % (Auto) 42.1 Lymph % (Auto) 41.6 [place] % (Auto) 12.8 Eos % (Auto) 2.1 Baso % (Auto) 0.9 Neut # (Auto) 4.78 Lymph # (Auto) 4.73 H [place] # (Auto) 1.46 H Eos # (Auto) 0.24 Baso # (Auto) 0.10 Immature Gran # (Auto) 0.06 PT Cancelled INR Cancelled D-Dimer Cancelled Sodium 138 Potassium 4.3 Chloride 110 H Carbon Dioxide 24 Anion Gap 4 BUN 17 Creatinine 0.90 Est Cr Clr Drug Dosing 76.5 Est GFR ( Amer) 103.5 Est GFR (Non-Af Amer) 89.3 BUN/Creatinine Ratio 18.9 Glucose 90 Calcium 9.4 Magnesium Total Bilirubin 1.1 H AST 20 ALT 17 Alkaline Phosphatase 98 Troponin I High Sens 10.3 Total Protein 7.4 Albumin 4.0 Globulin 3.4 Albumin/Globulin Ratio 1.2 Triglycerides Cholesterol LDL Cholesterol, Calc VLDL Cholesterol, Calc HDL Cholesterol Cholesterol/HDL Ratio Lipase 37 TSH Free T4 SARS-CoV-2, RNA, NAAT 11/09/22 11/09/22 11/09/22 13:56 14:00 15:21 WBC RBC Hgb Hct MCV MCH MCHC RDW Std Deviation RDW Coeff of Matthew Plt Count MPV Immature Gran % (Auto) Neut % (Auto) Lymph % (Auto) [place] % (Auto) Eos % (Auto) Baso % (Auto) Neut # (Auto) Lymph # (Auto) [place] # (Auto) Eos # (Auto) Baso # (Auto) Immature Gran # (Auto) PT 11.6 INR 1.1 D-Dimer 420 Sodium Potassium Chloride Carbon Dioxide Anion Gap BUN Creatinine Est Cr Clr Drug Dosing Est GFR ( Amer) Est GFR (Non-Af Amer) BUN/Creatinine Ratio Glucose Calcium Magnesium Total Bilirubin AST ALT Alkaline Phosphatase Troponin I High Sens Total Protein Albumin Globulin Albumin/Globulin Ratio Triglycerides Cholesterol LDL Cholesterol, Calc VLDL Cholesterol, Calc HDL Cholesterol Cholesterol/HDL Ratio Lipase TSH 5.311 H Free T4 0.81 SARS-CoV-2, RNA, NAAT NEGATIVE 11/09/22 11/09/22 11/10/22 15:22 20:13 01:42 WBC 9.98 RBC 4.12 L Hgb 13.6 L Hct 40.4 L MCV 98.1 MCH 33.0 MCHC 33.7 RDW Std Deviation 49.3 H RDW Coeff of Matthew 13.6 Plt Count 229 MPV 10.8 Immature Gran % (Auto) Neut % (Auto) Lymph % (Auto) [place] % (Auto) Eos % (Auto) Baso % (Auto) Neut # (Auto) Lymph # (Auto) [place] # (Auto) Eos # (Auto) Baso # (Auto) Immature Gran # (Auto) PT INR D-Dimer Sodium Potassium Chloride Carbon Dioxide Anion Gap BUN Creatinine Est Cr Clr Drug Dosing Est GFR ( Amer) Est GFR (Non-Af Amer) BUN/Creatinine Ratio Glucose Calcium Magnesium 1.7 Total Bilirubin AST ALT Alkaline Phosphatase Troponin I High Sens 6.7 Total Protein Albumin Globulin Albumin/Globulin Ratio Triglycerides Cholesterol LDL Cholesterol, Calc VLDL Cholesterol, Calc HDL Cholesterol Cholesterol/HDL Ratio Lipase TSH Free T4 SARS-CoV-2, RNA, NAAT 11/10/22 01:42 WBC RBC Hgb Hct MCV MCH MCHC RDW Std Deviation RDW Coeff of Matthew Plt Count MPV Immature Gran % (Auto) Neut % (Auto) Lymph % (Auto) [place] % (Auto) Eos % (Auto) Baso % (Auto) Neut # (Auto) Lymph # (Auto) [place] # (Auto) Eos # (Auto) Baso # (Auto) Immature Gran # (Auto) PT INR D-Dimer Sodium 140 Potassium 4.1 Chloride 110 H Carbon Dioxide 23 Anion Gap 7 BUN 18 Creatinine 0.92 Est Cr Clr Drug Dosing 74.8 Est GFR ( Amer) 100.8 Est GFR (Non-Af Amer) 87.0 BUN/Creatinine Ratio 19.6 Glucose 103 H Calcium 8.5 L Magnesium Total Bilirubin AST ALT Alkaline Phosphatase Troponin I High Sens 6.5 Total Protein Albumin Globulin Albumin/Globulin Ratio Triglycerides 134 Cholesterol 159 LDL Cholesterol, Calc 103 VLDL Cholesterol, Calc 27 HDL Cholesterol 29 Cholesterol/HDL Ratio 5.5 H Lipase TSH Free T4 SARS-CoV-2, RNA, NAAT Diagnostic Findings Echocardiogram 11/10/2022 Left ventricular size and function normal with borderline increase in left trickle wall thickness Normal left atrial size No significant valvular disease ECG Additional Comments: Sinus bradycardia Left anterior fascicular block Abnormal ECG When compared with ECG of 09-NOV-2022 14:40, Sinus rhythm has replaced Atrial flutter Vent. rate has decreased BY 58 BPM
[2022-11-10] MEDS: APIXABAN 5 MG TABLET PO SCH (09:57)
--- NOTE | 2022-11-10 10:41 | Electrocardiogram Report ---
Test Reason : Blood Pressure : / mmHG Vent. Rate : 056 BPM Atrial Rate : 056 BPM P-R Int : 166 ms QRS Dur : 086 ms QT Int : 448 ms P-R-T Axes : 070 -59 054 degrees QTc Int : 432 ms Sinus bradycardia Left anterior fascicular block Abnormal ECG When compared with ECG of 09-NOV-2022 14:40, Sinus rhythm has replaced Atrial flutter Vent. rate has decreased BY 58 BPM Confirmed by Xavier Heranndez ([id number]) on 11/10/2022 10:41:27 AM Referred By: REFERRED SELF Confirmed By:Xavier Hernandez
[2022-11-10] MEDS ORDERED: METOPROLOL SUCC 25MG EXT REL TAB PO SCH (11:00)
--- NOTE | 2022-11-10 13:11 | Discharge Summary ---
Discharge Summary Date of Service November 10, 2022 Notes For Next Care Provider New onset afib Needs followup in 4-6 weeks [facility] Cardiology Smoking cessation advised Please ensure he is hooked into Anticoagulation clinic Needs INR in 3 days. Medication Changes From Visit NEW warfarin 5mg PO daily CONT Toprol XL 25mg PO daily Admission HPI Per Admitting Provider 67-year-old male with PMH dyslipidemia, palpitations, and other problems listed below who presents to the ED for evaluation of fatigue and chest pain. History obtained from patient and review of outpatient PCP and cardiology records. Patient evaluated by cardiology in 2020 for complaints of palpitations. Patient was started on metoprolol and was recommended to get an echocardiogram. Patient reports he never completed the echocardiogram due to not having insurance at the time. Patient states that he stopped the metoprolol after a few months since he was feeling better. Patient reports that about 2 weeks ago, he developed feelings of fatigue and left-sided chest discomfort. Patient describes the chest discomfort as a squeezing sensation. No specific causative or relieving factors. Noted the patient is somewhat a poor historian. He reports intermittent feelings of indigestion which was relieved with Pepcid. This is not a new symptom for him. He denies lightheadedness, dizziness, diaphoresis, syncopal events. Denies abdominal pain, nausea, vomiting, diarrhea. No other recent illnesses, fevers, chills. Denies urinary symptoms. In the ED, EKG shows atrial flutter with RVR and variable block. Patient was given diltiazem 10 mg IV and metoprolol 5 mg IV and has converted to NSR. Labs are unremarkable. Principal Dx & Hospital Course #1 = Principal Diagnosis (1) Atrial flutter with rapid ventricular response: Plan 67-year-old man with a history of palpitations in the past presents with new onset atrial fibrillation with rapid ventricular response. He converted after AV nuzhat blockers were given in the ER and subsequently his chest discomfort re solved. ACS was ruled out with negative cardiac troponins that were trended. Echo was performed and within normal limits. He remained in sinus rhythm overnight on telemetry. Cardiology was consulted the following day. He was discharged in stable condition on Toprol-XL 25 mg p.o. daily with anticoagulation. Per his pharmacist, apixaban was cost prohibitive as it was over $500 for 1 month supply, therefore, he was placed on Coumadin. He was given information about the Coumadin medication including how to monitor and common side effects. Close MTM clinic follow-up is recommended. Follow-up with cardiology in 4 to 6 weeks. Follow-up with primary care in 1 week. Strict smoking cessation was advised. Discharge Exam hemodynamically stable and afebrile mentating and ambulating at baseline tolerating PO symptoms resolved from admission. Updated Medication List Medication Instructions Recorded Confirmed Type multivitamin 1 tab PO QAM 11/09/22 11/09/22 History omega-3 fatty acids 1,000 mg 2,000 mg PO QAM 11/09/22 11/09/22 History capsule metoprolol succinate 25 mg 25 mg PO QAM #30 tabs 11/10/22 Rx tablet,extended release 24 hr warfarin 5 mg tablet 5 mg PO DAILY #20 tabs 11/10/22 Rx Hospital Stay Data Consultations 11/09/22 15:43 ED Decision to Admit Stat 11/09/22 18:26 Consult Cardiology Routine Pending Results Patient Have Any Pending Studies at Discharge: No Discharge Instructions Given to Patient (Per Discharging Provider) You have been diagnosed with atrial fibrillation, an abnormal rhythm of the heart that can cause stroke. Please take all medications as prescribed on discharge list below. You are being placed on a blood thinner called coumadin. This medication will need to be monitored closely with labwork to ensure you stay in the therapeutic range (INR 2-3). Typically, there is a special trained pharmacist through [facility] who manages dose changes and lab checks in something called an anticoagulation clinic. Someone from this clinic should be contacting you to train you on this medication and start checking labwork later this week. While taking any blood thinner like warfarin, please avoid other blood thinners such as Miotrin, Naproxen, etc. Tylenol is fine to take for pain. Any new medications should be reviewed with your doctor prior to starting them. Please followup with [facility] Cardiology in 4-6 weeks and with your primary care physician within the next week. Smoking cessation is strongly recommended for improved health. It was a pleasure taking care of you! Please call if you have any questions or problems. You can reach a [facility] hospitalist on duty at [facility] 24 hours a day by calling [phone]. Take care of yourself. ShantelleDO Claire Hankins Hospitalist Total Time Total Time Spent Total Time Spent (In Minutes): 60
--- NOTE | 2022-11-10 13:28 | Electrocardiogram Report ---
Test Reason : Blood Pressure : / mmHG Vent. Rate : 055 BPM Atrial Rate : 055 BPM P-R Int : 166 ms QRS Dur : 090 ms QT Int : 476 ms P-R-T Axes : 065 -51 022 degrees QTc Int : 455 ms Sinus bradycardia Left anterior fascicular block Possible Septal infarct , age undetermined vs lead placement When compared with ECG of 09-NOV-2022 16:00, (unconfirmed) Nonspecific T wave abnormality now present in the inferior leads Confirmed by Xavier Hernandez ([id number]) on 11/10/2022 1:27:54 PM Referred By: REFERRED SELF Confirmed By:Xavier Hernandez
== END 2022-11-10 13:49 | disposition home or self-care (01) ==
LOC: 4W 13:35 → ED 13:35 → 4W 18:25